=== PATIENT | male | born 1995 | race Caucasian/White ===

== ENCOUNTER 2022-09-07 11:35 | Inpatient (IN) | payer BC, OTHER ==
[2022-09-07 11:57] VITALS: BMI 24.3
[2022-09-07] MEDS ORDERED: SODIUM CHLORIDE 0.9% 500 ML INFUS.BAG IV ONE (13:42)
[2022-09-07] MEDS ORDERED: chlordiazePOXIDE HCL 25 MG CAPSULE ONE ×2 (14:41→16:44)
[2022-09-07] MEDS ORDERED: THIAMINE HCL 100 MG TABLET (FP) ONE (14:41)
[2022-09-07] MEDS ORDERED: chlordiazePOXIDE HCL 25 MG CAPSULE PO ONE ×2 (14:45→16:06)
[2022-09-07] MEDS ORDERED: SODIUM CHLORIDE 1,000 ML IV ONE (14:45)
[2022-09-07] MEDS ORDERED: THIAMINE HCL 100 MG TABLET (FP) PO ONE (14:45)
[2022-09-07 15:14] LABS: BASO % 0.7 % (0-2.0); EOS % 0.4 % (0-4.5); HEMATOCRIT 44.9 % (35.4-49); LYMPH % 17.2 % (8-40); MCH 28.3 pg (25.7-33.7); MCHC 33.4 g/dl (32.0-35.9); MEAN CELL VOLUME 84.7 fl (80-96); MEAN PLT VOLUME 7.1 fl (7.5-11.1); MONO % 4.4 % (3.8-10.2); NEUT % 77.3 % (42.8-82.8); PLATELET COUNT 102 10^3/uL (134-434); RDW 13.7 % (11.9-15.9)
[2022-09-07 15:35] LABS: ALBUMIN 3.7 g/dl (3.4-5.0); BLOOD UREA NITROGEN 5.4 mg/dL (7-18); CALCIUM 8.7 mg/dL (8.5-10.1); MAGNESIUM 2.3 mg/dL (1.8-2.4)
[2022-09-07 15:39] LABS: CREATININE 0.8 mg/dL (0.55-1.3); PHOSPHOROUS 3.6 mg/dL (2.5-4.9)
[2022-09-07 15:41] LABS: BILIRUBIN,TOTAL 0.9 mg/dL (0.2-1); TOT PROT 6.9 g/dl (6.4-8.2)
[2022-09-07] MEDS ORDERED: LORazepam 2 MG/ML SDV VIAL IVPUSH ONE (19:34)
[2022-09-07] MEDS ORDERED: diazePAM CARPU-JECT 10 MG/2 ML DISP.SYRIN IVPUSH ONE (19:51)
[2022-09-07] MEDS ORDERED: diazePAM CARPU-JECT 10 MG/2 ML DISP.SYRIN ONE (19:54)
[2022-09-07] MEDS ORDERED: FOLIC ACID INJECTION - 1 MG, THIAMINE HCL 100 MG, MULTIVIT INJECTION ADULT 10 ML in SOD... IVPB ONE (21:05)
[2022-09-07] MEDS ORDERED: LORazepam 1 MG TABLET PO PRN (21:06)
[2022-09-07] MEDS ORDERED: ONDANSETRON 4 MG/2 ML VIAL IVPUSH PRN (21:06)
[2022-09-07] MEDS ORDERED: LORazepam 2 MG TABLET PO SCH (23:00)
[2022-09-07] MEDS: ENOXAPARIN NA (PORCINE) 40 MG/0.4 ML DISP.SYRIN SQ SCH (23:30)
[2022-09-07] MEDS: MELATONIN 5 MG TABLETS PO SCH (23:35)
[2022-09-07] MEDS ORDERED: MELATONIN 5 MG TABLETS ONE (23:35)
[2022-09-07] MEDS: LORazepam 1 MG TABLET PO SCH (23:35)
[2022-09-07] MEDS: MULTIVITAMINS (DAILY MVI) TABLET (FP) PO SCH (23:35)
[2022-09-07] MEDS ORDERED: LORazepam 1 MG TABLET ONE (23:35)
[2022-09-07] MEDS ORDERED: ENOXAPARIN NA (PORCINE) 40 MG/0.4 ML DISP.SYRIN SQ ONE (23:36)
[2022-09-07] MEDS ORDERED: MULTIVITAMINS (DAILY MVI) TABLET (FP) ONE (23:36)
[2022-09-08] MEDS ORDERED: LORazepam 1 MG TABLET ONE ×3 (02:08→08:12)
[2022-09-08 03:12] LABS: URINE APPEARANCE CLEAR; URINE BILIRUBIN NEGATIVE (NEGATIVE); URINE COLOR YELLOW; URINE GLUCOSE (UA) NEGATIVE (NEGATIVE); URINE KETONE 1+ (NEGATIVE); URINE LEUK ESTERASE NEGATIVE (NEGATIVE); URINE NITRITE NEGATIVE (NEGATIVE); URINE PROTEIN NEGATIVE (NEGATIVE)
[2022-09-08 03:21] LABS: COCAINE, UR NEGATIVE (NEGATIVE); OPIATES, URI NEGATIVE (NEGATIVE); URINE BARBITURATES NEGATIVE (NEGATIVE)
[2022-09-08 03:23] LABS: PHENCYCLIDINE,URINE NEGATIVE (NEGATIVE)
[2022-09-08] MEDS ORDERED: LORazepam 1 MG TABLET PO ONE (03:25)
[2022-09-08] MEDS ORDERED: LORazepam 2 MG TABLET PO ONE (03:25)
[2022-09-08 03:28] LABS: METHADONE, UR NEGATIVE (NEGATIVE); URINE AMPHETAMINES NEGATIVE (NEGATIVE); URINE BENZODIAZEPINES POSITIVE (NEGATIVE)
[2022-09-08] MEDS: LORazepam 1 MG TABLET PO SCH ×4 (06:00→22:07)
[2022-09-08] MEDS: SODIUM CHLORIDE 1,000 ML IV SCH ×2 (08:10→22:13)
[2022-09-08] MEDS: cloNIDine HCL 0.1 MG TABLET PO SCH ×2 (09:55→22:06)
[2022-09-08] MEDS ORDERED: cloNIDine HCL 0.1 MG TABLET ONE (09:55)
[2022-09-08] MEDS: THIAMINE HCL 100 MG TABLET (FP) PO SCH (09:58)
[2022-09-08] MEDS ORDERED: THIAMINE HCL 100 MG TABLET (FP) ONE (09:58)
[2022-09-08] MEDS ORDERED: MULTIVITAMINS (DAILY MVI) TABLET (FP) ONE (09:58)
[2022-09-08] MEDS: MULTIVITAMINS (DAILY MVI) TABLET (FP) PO SCH (09:58)
[2022-09-08] MEDS: ENOXAPARIN NA (PORCINE) 40 MG/0.4 ML DISP.SYRIN SQ SCH (11:00)
[2022-09-08 12:33] LABS: BASO % 0.6 % (0-2.0); EOS % 0.8 % (0-4.5); HEMATOCRIT 40.7 % (35.4-49); HEMOGLOBIN 13.8 GM/dL (11.7-16.9); LYMPH % 14.3 % (8-40); MCH 28.7 pg (25.7-33.7); MCHC 33.8 g/dl (32.0-35.9); MEAN CELL VOLUME 84.9 fl (80-96); MEAN PLT VOLUME 7.9 fl (7.5-11.1); MONO % 7.3 % (3.8-10.2); PLATELET COUNT 72 10^3/uL (134-434); RBC 4.79 M/mm3 (4.00-5.60); RDW 13.6 % (11.9-15.9); WHITE BLOOD COUNT 4.4 K/mm3 (4.0-10.0)
[2022-09-08 12:53] LABS: CALCIUM 8.4 mg/dL (8.5-10.1)
[2022-09-08 12:54] LABS: ALBUMIN 3.3 g/dl (3.4-5.0); BLOOD UREA NITROGEN 7.2 mg/dL (7-18)
[2022-09-08 12:57] LABS: CREATININE 0.6 mg/dL (0.55-1.3); PHOSPHOROUS 3.2 mg/dL (2.5-4.9)
[2022-09-08 12:58] LABS: TOT PROT 6.1 g/dl (6.4-8.2)
[2022-09-08] MEDS: MELATONIN 5 MG TABLETS PO SCH (22:07)
[2022-09-09] MEDS: LORazepam 1 MG TABLET PO SCH ×4 (05:29→22:04)
[2022-09-09 09:28] LABS: HEMATOCRIT 42.6 % (35.4-49); HEMOGLOBIN 14.5 GM/dL (11.7-16.9); MEAN CELL VOLUME 85.2 fl (80-96); MEAN PLT VOLUME 8.3 fl (7.5-11.1); PLATELET COUNT 69 10^3/uL (134-434); WHITE BLOOD COUNT 5.4 K/mm3 (4.0-10.0)
[2022-09-09] MEDS: cloNIDine HCL 0.1 MG TABLET PO SCH ×2 (09:46→22:04)
[2022-09-09] MEDS: THIAMINE HCL 100 MG TABLET (FP) PO SCH (09:46)
[2022-09-09] MEDS: MULTIVITAMINS (DAILY MVI) TABLET (FP) PO SCH (09:46)
[2022-09-09 10:11] LABS: ALBUMIN 3.6 g/dl (3.4-5.0); BLOOD UREA NITROGEN 6.9 mg/dL (7-18); CALCIUM 8.8 mg/dL (8.5-10.1)
[2022-09-09 10:16] LABS: BILIRUBIN,TOTAL 1.6 mg/dL (0.2-1)
[2022-09-09 10:18] LABS: CREATININE 0.7 mg/dL (0.55-1.3)
[2022-09-09 10:19] LABS: TOT PROT 6.6 g/dl (6.4-8.2)
[2022-09-09] MEDS: SODIUM CHLORIDE 1,000 ML IV SCH ×2 (11:34→23:40)
[2022-09-09] MEDS: MELATONIN 5 MG TABLETS PO SCH (22:04)
[2022-09-10] MEDS ORDERED: LORazepam 0.5 MG TABLET PO PRN
[2022-09-10] MEDS: LORazepam 0.5 MG TABLET PO SCH ×4 (05:39→22:25)
[2022-09-10] MEDS: cloNIDine HCL 0.1 MG TABLET PO SCH (10:18)
[2022-09-10] MEDS: THIAMINE HCL 100 MG TABLET (FP) PO SCH (10:21)
[2022-09-10] MEDS: MULTIVITAMINS (DAILY MVI) TABLET (FP) PO SCH (10:21)
[2022-09-10] MEDS: MELATONIN 5 MG TABLETS PO SCH (22:25)
[2022-09-11] MEDS ORDERED: LORazepam 0.5 MG TABLET PO ONE (05:00)
[2022-09-11 08:14] LABS: HEMATOCRIT 43.2 % (35.4-49); MCH 29.5 pg (25.7-33.7); MCHC 34.8 g/dl (32.0-35.9); MEAN PLT VOLUME 8.4 fl (7.5-11.1); PLATELET COUNT 93 10^3/uL (134-434); RBC 5.08 M/mm3 (4.00-5.60); RDW 13.7 % (11.9-15.9); WHITE BLOOD COUNT 4.5 K/mm3 (4.0-10.0)
[2022-09-11 08:36] LABS: BLOOD UREA NITROGEN 13.7 mg/dL (7-18); CALCIUM 8.9 mg/dL (8.5-10.1)
[2022-09-11 08:37] LABS: ALBUMIN 3.7 g/dl (3.4-5.0)
[2022-09-11 08:39] LABS: CREATININE 0.8 mg/dL (0.55-1.3)
[2022-09-11 08:41] LABS: TOT PROT 6.7 g/dl (6.4-8.2)
[2022-09-11 08:42] LABS: BILIRUBIN,TOTAL 1.3 mg/dL (0.2-1)
[2022-09-11 08:47] VITALS: RESP 18
[2022-09-11] MEDS: THIAMINE HCL 100 MG TABLET (FP) PO SCH (09:49)
[2022-09-11] MEDS: MULTIVITAMINS (DAILY MVI) TABLET (FP) PO SCH (09:49)
[2022-09-11] MEDS ORDERED: ESCITALOPRAM OXALATE 10 MG TABLET PO SCH (10:00)
[2022-09-11 13:53] VITALS: BP 131/50; PULSE 70; TEMP 98.4
== END 2022-09-11 15:15 | disposition home or self-care (01) | DRG 897 ==
LOC: JER 11:35 → JERBED 19:35 → OBSVTOIN 21:03 → J4S 09-08 10:28
PROVIDERS: ADMIT Internal Medicine; ATTEND Internal Medicine
PROC: HZ2ZZZZ Detoxification Services for Substance Abuse Treatment (ICD-10-PCS; principal; 2022-09-07)
DX: F10.239 Alcohol dependence with withdrawal, unspecified (principal); R74.01 Elevation of levels of liver transaminase levels; F17.210 Nicotine dependence, cigarettes, uncomplicated
CPT/HCPCS: 36415; 76705-TC; 80053; 80307; 81003; 82272; 83036; 83735; 84100; 84439; 84443; 85025; 85027; 86707; 86708; 87086; 87340; 87517; 87522; 93005; 93010; 99291; C9803-CS; G0378; U0003; U0005

== ENCOUNTER 2023-03-13 19:34 | Inpatient (IN) | payer BC ==
[2023-03-13] MEDS ORDERED: diazePAM CARPU-JECT 10 MG/2 ML DISP.SYRIN IVPUSH ONE ×2 (20:29→21:55)
[2023-03-13] MEDS ORDERED: LACTATED RINGERS SOLUTION 1000 ML INFUS.BAG IV ONE (20:29)
[2023-03-13] MEDS ORDERED: ONDANSETRON 4 MG/2 ML VIAL IVPB ONE ×2 (20:29→22:00)
[2023-03-13 20:32] LABS: VENOUS BASE EXCESS 5.1 mmol/L (-2-2); VENOUS O2 SATURATION 96.3 % (70-80); VENOUS PCO2 38.1 mmHg (38-52); VENOUS PH 7.493 (7.310-7.410)
[2023-03-13] MEDS ORDERED: ONDANSETRON 4 MG/2 ML VIAL ONE ×2 (20:37→22:58)
[2023-03-13] MEDS ORDERED: diazePAM CARPU-JECT 10 MG/2 ML DISP.SYRIN ONE ×2 (20:37→22:27)
[2023-03-13 20:54] LABS: BASO % 1.1 % (0-2.0); EOS % 0.3 % (0-4.5); LYMPH % 29.3 % (8-40); MCH 28.3 pg (25.7-33.7); MCHC 34.7 g/dl (32.0-35.9); MEAN CELL VOLUME 81.4 fl (80-96); MONO % 4.3 % (3.8-10.2); PLATELET COUNT 169 10^3/uL (134-434); RBC 5.65 M/mm3 (4.00-5.60); RDW 13.6 % (11.9-15.9); WHITE BLOOD COUNT 5.8 K/mm3 (4.0-10.0)
[2023-03-13 21:00] LABS: INR 0.99 (0.83-1.09); PROTHROMBIN TIME (PATIENT) 11.5 SEC (9.7-13.0)
[2023-03-13 21:03] LABS: ACTIVATED PTT 23.4 SECONDS (25.2-36.5)
[2023-03-13 21:13] LABS: ALBUMIN 3.7 g/dl (3.4-5.0); BLOOD UREA NITROGEN 11.3 mg/dL (7-18); CALCIUM 8.3 mg/dL (8.5-10.1); MAGNESIUM 2.3 mg/dL (1.8-2.4)
[2023-03-13] MEDS ORDERED: THIAMINE HCL 200 MG/2 ML VIAL IVPB ONE ×2 (21:14→23:13)
[2023-03-13] MEDS ORDERED: MULTIVITAMINS (DAILY MVI) TABLET (FP) PO ONE (21:14)
[2023-03-13] MEDS ORDERED: FOLIC ACID 1 MG TABLET (FP) PO ONE (21:14)
[2023-03-13 21:18] LABS: BILIRUBIN,TOTAL 1.1 mg/dL (0.2-1); TOT PROT 7.1 g/dl (6.4-8.2)
[2023-03-13] MEDS ORDERED: THIAMINE HCL 200 MG/2 ML VIAL ONE (21:59)
[2023-03-13] MEDS ORDERED: SODIUM CHLORIDE 1,000 ML IV SCH (23:00)
[2023-03-14] MEDS ORDERED: THIAMINE HCL 200 MG/2 ML VIAL ONE ×2 (00:02→07:33)
[2023-03-14] MEDS ORDERED: LORazepam 1 MG TABLET ONE ×3 (00:02→16:17)
[2023-03-14] MEDS ORDERED: FOLIC ACID 1 MG TABLET (FP) ONE ×2 (00:02→10:44)
[2023-03-14] MEDS ORDERED: MULTIVITAMINS (DAILY MVI) TABLET (FP) ONE (00:02)
[2023-03-14 00:24] VITALS: BMI 25.1
[2023-03-14] MEDS ORDERED: LORazepam 2 MG/ML SDV VIAL IVPUSH ONE (01:02)
[2023-03-14] MEDS ORDERED: METOCLOPRAMIDE HCL INJECTION 10 MG/2 ML VIAL ONE (01:14)
[2023-03-14 01:22] LABS: URINE APPEARANCE CLEAR; URINE BILIRUBIN NEGATIVE (NEGATIVE); URINE COLOR YELLOW; URINE GLUCOSE (UA) NEGATIVE (NEGATIVE); URINE KETONE NEGATIVE (NEGATIVE); URINE LEUK ESTERASE NEGATIVE (NEGATIVE); URINE NITRITE NEGATIVE (NEGATIVE); URINE PROTEIN NEGATIVE (NEGATIVE)
[2023-03-14] MEDS ORDERED: FOLIC ACID INJECTION - 1 MG, THIAMINE HCL 100 MG, MULTIVIT INJECTION ADULT 10 ML in SOD... IVPB ONE (01:30)
[2023-03-14 01:32] LABS: COCAINE, UR NEGATIVE (NEGATIVE); PHENCYCLIDINE,URINE NEGATIVE (NEGATIVE); URINE AMPHETAMINES NEGATIVE (NEGATIVE); URINE BENZODIAZEPINES NEGATIVE (NEGATIVE)
[2023-03-14 01:40] LABS: METHADONE, UR NEGATIVE (NEGATIVE); OPIATES, URI NEGATIVE (NEGATIVE); URINE BARBITURATES NEGATIVE (NEGATIVE)
[2023-03-14] MEDS: LORazepam 1 MG TABLET PO SCH ×5 (05:47→22:27)
[2023-03-14 05:57] VITALS: RESP 18
[2023-03-14] MEDS ORDERED: THIAMINE HCL 200 MG/2 ML VIAL IVPB SCH (06:00)
[2023-03-14 06:25] LABS: HEMATOCRIT 36.8 % (35.4-49); HEMOGLOBIN 13.1 GM/dL (11.7-16.9); MCH 28.9 pg (25.7-33.7); MCHC 35.6 g/dl (32.0-35.9); MEAN CELL VOLUME 81.2 fl (80-96); MEAN PLT VOLUME 7.7 fl (7.5-11.1); PLATELET COUNT 114 10^3/uL (134-434); RBC 4.53 M/mm3 (4.00-5.60); RDW 13.3 % (11.9-15.9); WHITE BLOOD COUNT 7.7 K/mm3 (4.0-10.0)
[2023-03-14 07:06] LABS: CALCIUM 7.6 mg/dL (8.5-10.1)
[2023-03-14 07:08] LABS: BLOOD UREA NITROGEN 13.6 mg/dL (7-18); MAGNESIUM 1.8 mg/dL (1.8-2.4)
[2023-03-14 07:11] LABS: CREATININE 0.9 mg/dL (0.55-1.3); PHOSPHOROUS 3.8 mg/dL (2.5-4.9)
[2023-03-14 07:12] LABS: BILIRUBIN,TOTAL 0.9 mg/dL (0.2-1); TOT PROT 5.5 g/dl (6.4-8.2)
[2023-03-14] MEDS: INSULIN SLIDING SCALE (NOVOLOG) 1 VIAL SQ SCH ×4 (07:48→21:21)
[2023-03-14] MEDS ORDERED: NICOTINE 7 MG/24 HOURS TOPICAL PATCH TD ONE (09:06)
[2023-03-14] MEDS ORDERED: ENOXAPARIN NA (PORCINE) 40 MG/0.4 ML DISP.SYRIN SQ ONE (09:07)
[2023-03-14] MEDS: NICOTINE 7 MG/24 HOURS TOPICAL PATCH TD SCH (09:14)
[2023-03-14] MEDS: ENOXAPARIN NA (PORCINE) 40 MG/0.4 ML DISP.SYRIN SQ SCH (09:14)
[2023-03-14] MEDS ORDERED: FOLIC ACID 5 MG/1 ML SQ SCH (10:00)
[2023-03-14] MEDS ORDERED: THIAMINE HCL 100 MG TABLET (FP) ONE (10:43)
[2023-03-14] MEDS: THIAMINE HCL 100 MG TABLET (FP) PO SCH (10:45)
[2023-03-14] MEDS: FOLIC ACID 1 MG TABLET (FP) PO SCH (10:45)
[2023-03-15] MEDS: LORazepam 1 MG TABLET PO SCH ×2 (05:40→10:58)
[2023-03-15] MEDS: INSULIN SLIDING SCALE (NOVOLOG) 1 VIAL SQ SCH ×2 (06:44→11:05)
[2023-03-15 07:39] LABS: BASO % 0.5 % (0-2.0); EOS % 2.8 % (0-4.5); HEMATOCRIT 39.5 % (35.4-49); HEMOGLOBIN 13.6 GM/dL (11.7-16.9); LYMPH % 27.4 % (8-40); MCH 28.7 pg (25.7-33.7); MCHC 34.5 g/dl (32.0-35.9); MEAN PLT VOLUME 8.2 fl (7.5-11.1); MONO % 5.8 % (3.8-10.2); NEUT % 63.5 % (42.8-82.8); PLATELET COUNT 101 10^3/uL (134-434); RBC 4.75 M/mm3 (4.00-5.60); RDW 13.2 % (11.9-15.9)
[2023-03-15 07:58] LABS: CALCIUM 8.2 mg/dL (8.5-10.1)
[2023-03-15 07:59] LABS: ALBUMIN 3.2 g/dl (3.4-5.0); BLOOD UREA NITROGEN 8.6 mg/dL (7-18); MAGNESIUM 2.2 mg/dL (1.8-2.4)
[2023-03-15 08:02] LABS: CREATININE 0.7 mg/dL (0.55-1.3); PHOSPHOROUS 3.3 mg/dL (2.5-4.9)
[2023-03-15 08:04] LABS: BILIRUBIN,TOTAL 2.7 mg/dL (0.2-1); TOT PROT 5.8 g/dl (6.4-8.2)
[2023-03-15 09:08] VITALS: BP 131/74; PULSE 71; TEMP 99
[2023-03-15] MEDS: NICOTINE 7 MG/24 HOURS TOPICAL PATCH TD SCH (09:44)
[2023-03-15] MEDS: FOLIC ACID 1 MG TABLET (FP) PO SCH (09:44)
[2023-03-15] MEDS: THIAMINE HCL 100 MG TABLET (FP) PO SCH (09:44)
[2023-03-15] MEDS: ENOXAPARIN NA (PORCINE) 40 MG/0.4 ML DISP.SYRIN SQ SCH (09:44)
[2023-03-16] MEDS ORDERED: LORazepam 0.5 MG TABLET PO SCH (05:00)
[2023-03-17] MEDS ORDERED: LORazepam 0.5 MG TABLET PO ONE (05:00)
== END 2023-03-15 13:51 | disposition other institution (70) | DRG 897 ==
LOC: JER 19:34 → JERBED 21:54 → J4W 03-14 20:58
PROVIDERS: ADMIT Internal Medicine; ATTEND Internal Medicine
PROC: HZ2ZZZZ Detoxification Services for Substance Abuse Treatment (ICD-10-PCS; principal; 2023-03-13)
DX: F10.232 Alcohol dependence with withdrawal with perceptual disturbance (principal); R45.851 Suicidal ideations; R44.0 Auditory hallucinations; R44.1 Visual hallucinations; F11.23 Opioid dependence with withdrawal; F12.90 Cannabis use, unspecified, uncomplicated; I10 Essential (primary) hypertension; R74.01 Elevation of levels of liver transaminase levels; F32.A Depression, unspecified; F17.210 Nicotine dependence, cigarettes, uncomplicated
CPT/HCPCS: 36415; 71045-TC-FY; 80053; 80307; 81003; 82803; 82962; 83690; 83735; 84100; 84443; 85025; 85027; 85610; 85730; 93005; 93010; 99285-25; C9803-CS; U0003; U0005

== ENCOUNTER 2023-03-15 15:11 | Inpatient (IN) | payer BC ==
[2023-03-15 15:54] VITALS: RESP 18; BMI 23.6
[2023-03-15] MEDS ORDERED: LORazepam 1 MG TABLET PO SCH (17:00)
[2023-03-15] MEDS ORDERED: BENZONATATE 200 MG CAPSULE PO PRN (17:33)
[2023-03-15] MEDS ORDERED: IBUPROFEN 400 MG TABLET (FP) PO PRN (17:33)
[2023-03-15] MEDS ORDERED: ONDANSETRON *ODT* 4 MG TABLET SL PRN (17:33)
[2023-03-15] MEDS ORDERED: NICOTINE 10 MG CARTRIDGE (INHALER) IH PRN (17:33)
[2023-03-15] MEDS ORDERED: P-EPHED 60MG/TRIPROLIDI 2.5MG TABLET PO PRN (17:33)
[2023-03-15] MEDS ORDERED: DICYCLOMINE HCL 10 MG CAPSULE PO PRN (17:33)
[2023-03-15] MEDS ORDERED: LOPERAMIDE HCL 2 MG CAPSULE PO PRN (17:33)
[2023-03-15] MEDS ORDERED: hydrOXYzine PAMOATE 25 MG CAPSULE (FP) PO PRN (17:33)
[2023-03-15] MEDS ORDERED: MAG HYDROX/AL HYDROX/SIMETH 30 ML UNIT-DOSE CUP PO PRN (17:33)
[2023-03-15] MEDS ORDERED: IBUPROFEN 600 MG TABLET (FP) PO PRN (17:33)
[2023-03-15] MEDS ORDERED: guaiFENesin 600 MG TABLET.ER (FP) PO PRN (17:33)
[2023-03-15] MEDS ORDERED: BISMUTH SUBSALICYLATE 524 MG/30 ML PO PRN (17:33)
[2023-03-15] MEDS ORDERED: BENZOCAINE/MENTHOL (CHLORASEPTIC ) LOZENGE MM PRN (17:33)
[2023-03-15] MEDS ORDERED: POLYETHYLENE GLYCOL (HEALTHYLAX) 3350 17 GM PACKET PO PRN (17:33)
[2023-03-15] MEDS ORDERED: MAGNESIUM HYDROX 2400MG/30ML ORAL SUSPENSION 30 ML CUP PO PRN (17:33)
[2023-03-15] MEDS ORDERED: LORazepam 1 MG TABLET PO PRN (17:35)
[2023-03-15] MEDS ORDERED: METOPROLOL TARTRATE 25 MG TABLET (FP) ONE (18:11)
[2023-03-15] MEDS ORDERED: METOPROLOL TARTRATE 25 MG TABLET (FP) PO ONE (18:15)
[2023-03-15] MEDS: LORazepam 1 MG TABLET PO SCH ×2 (18:26→22:19)
[2023-03-15] MEDS ORDERED: THIAMINE HCL 100 MG TABLET (FP) PO SCH (22:00)
[2023-03-15] MEDS ORDERED: MELATONIN 5 MG TABLETS PO SCH (22:00)
[2023-03-16] MEDS: LORazepam 0.5 MG TABLET PO SCH ×2 (05:52→10:31)
[2023-03-16 09:43] VITALS: BP 137/91; PULSE 90; TEMP 97.7
[2023-03-16] MEDS ORDERED: PRENATAL VITAMINS W/ FOLIC ACID TABLET (FP) PO SCH (10:00)
[2023-03-17] MEDS ORDERED: LORazepam 0.5 MG TABLET PO ONE (05:00)
== END 2023-03-16 10:50 | disposition home or self-care (01) | DRG 897 ==
LOC: YASAS 15:11 → Y6N 18:03
PROVIDERS: ADMIT Allergy & Immunology; ATTEND Surgery
PROC: HZ2ZZZZ Detoxification Services for Substance Abuse Treatment (ICD-10-PCS; principal; 2023-03-15)
DX: F10.230 Alcohol dependence with withdrawal, uncomplicated (principal); F17.290 Nicotine dependence, other tobacco product, uncomplicated; Z88.0 Allergy status to penicillin
CPT/HCPCS: C9803-CS; U0003; U0005